=== PATIENT | female | born 1990 | race Caucasian/White ===

== ENCOUNTER 2024-12-10 19:56 | Observation (INO) | payer OTHER ==
[2024-12-10 20:02] VITALS: RESP 18; BMI 33.2
[2024-12-10 21:17] LABS: HEMATOCRIT 40.1 % (32.4-45.2); HEMOGLOBIN 13.5 GM/dL (10.7-15.3); MCH 29.3 pg (25.7-33.7); MCHC 33.6 g/dl (32.0-36.0); MEAN CELL VOLUME 87.3 fl (80-96); MEAN PLT VOLUME 7.7 fl (7.5-11.1); PLATELET COUNT 568 10^3/uL (134-434); RBC 4.59 M/mm3 (3.60-5.2); RDW 12.7 % (11.6-15.6)
[2024-12-10 21:45] LABS: CHLORIDE 103 mmol/L (98-107); POTASSIUM 3.4 mmol/L (3.5-5.1); SODIUM 136 mmol/L (136-145)
[2024-12-10 21:47] LABS: ALBUMIN 4.4 g/dl (3.4-5.0); AMYLASE 68 U/L (25-115); ANION GAP 14 mmol/L (4-13); BLOOD UREA NITROGEN 9.3 mg/dL (7-18); CO2 19 mmol/L (21-32); GLUCOSE,RANDOM 198 mg/dL (74-106); MAGNESIUM 1.5 mg/dL (1.8-2.4)
[2024-12-10 21:50] LABS: CREATININE 0.8 mg/dL (0.55-1.3); SGOT/AST 14 U/L (15-37); SGPT/ALT 16 U/L (13-61)
[2024-12-10 21:52] LABS: BILIRUBIN,TOTAL 0.6 mg/dL (0.2-1); TOT PROT 8.1 g/dl (6.4-8.2)
[2024-12-10 21:53] LABS: ALK PHOS 84 U/L (45-117)
[2024-12-10] MEDS ORDERED: TRIMETHOBENZAMIDE HCL 200MG/2ML INJ IM PRN (22:24)
[2024-12-10 22:25] LABS: PHOSPHOROUS 1.1 mg/dL (2.5-4.9)
[2024-12-10] MEDS ORDERED: MAGNESIUM 1GM/D5W - 2 GM/200 ML IVPB IVPB ONE (22:33)
[2024-12-10] MEDS: MAGNESIUM SULFATE IN WATER 2 GM/50 ML IVPB IVPB ONE (22:52)
[2024-12-10] MEDS: LACTATED RINGERS SOLUTION 1000 ML INFUS.BAG IV ONE (22:52)
[2024-12-10] MEDS: TRIMETHOBENZAMIDE HCL 200MG/2ML INJ IM ONE (23:10)
[2024-12-11 00:14] LABS: LACTIC ACID 2.9 mmol/L (0.4-2.0)
[2024-12-11] MEDS ORDERED: THIAMINE HCL 200 MG/2 ML VIAL ONE (00:25)
[2024-12-11] MEDS ORDERED: NAPH,MB-DB/K PH,MBDB POWDER PACKET ONE (00:26)
[2024-12-11] MEDS ORDERED: FAMOTIDINE 20 MG/50 ML IVPB 20 MG/50 ML MG IVPB ONE (00:26)
[2024-12-11] MEDS ORDERED: MAG HYDROX/AL HYDROX/SIMETH 30 ML UNIT-DOSE CUP ONE (00:26)
[2024-12-11] MEDS: LACTATED RINGERS SOLUTION 1000 ML INFUS.BAG IV ONE (00:38)
[2024-12-11] MEDS: THIAMINE HCL 200 MG/2 ML VIAL IVPB ONE (00:38)
[2024-12-11] MEDS: NAPH,MB-DB/K PH,MBDB POWDER PACKET PO ONE ×2 (00:38)
[2024-12-11] MEDS: MAG HYDROX/AL HYDROX/SIMETH 30 ML UNIT-DOSE CUP PO ONE (00:38)
[2024-12-11] MEDS: POTASSIUM CHLORIDE ORAL LIQUID 20 MEQ/15 ML PO ONE (00:38)
[2024-12-11] MEDS: FAMOTIDINE 20 MG/50 ML IVPB 20 MG/50 ML MG IVPB ONE (00:38)
[2024-12-11] MEDS: DEXTROSE 5%-NORMAL SALINE 1,000 ML IV SCH (01:52)
[2024-12-11] MEDS ORDERED: DOCUSATE SODIUM 100 MG CAPSULE (FP) PO PRN (01:58)
[2024-12-11 04:19] LABS: BASO % 0.2 % (0-2.0); HEMATOCRIT 37.9 % (32.4-45.2); HEMOGLOBIN 12.6 GM/dL (10.7-15.3); LYMPH % 4.1 % (8-40); MCH 29.2 pg (25.7-33.7); MCHC 33.2 g/dl (32.0-36.0); MEAN PLT VOLUME 7.5 fl (7.5-11.1); MONO % 0.8 % (3.8-10.2); NEUT % 94.9 % (42.8-82.8); PLATELET COUNT 357 10^3/uL (134-434); RBC 4.31 M/mm3 (3.60-5.2); RDW 12.4 % (11.6-15.6); WHITE BLOOD COUNT 14.9 K/mm3 (4.0-10.0)
[2024-12-11 04:23] LABS: VENOUS BASE EXCESS -2.5 mmol/L (-2-2); VENOUS PH 7.431 (7.310-7.410)
[2024-12-11 04:32] LABS: INR 1.25 (0.83-1.09); PROTHROMBIN TIME (PATIENT) 13.6 SEC (9.7-13.0)
[2024-12-11 04:35] LABS: ACTIVATED PTT 28.6 SECONDS (25.2-36.5)
[2024-12-11 04:59] LABS: CHLORIDE 102 mmol/L (98-107); POTASSIUM 3.8 mmol/L (3.5-5.1); SODIUM 136 mmol/L (136-145)
[2024-12-11 05:01] LABS: ANION GAP 12 mmol/L (4-13); BLOOD UREA NITROGEN 5.6 mg/dL (7-18); CALCIUM 8.9 mg/dL (8.5-10.1); CO2 21 mmol/L (21-32); GLUCOSE,RANDOM 109 mg/dL (74-106)
[2024-12-11] MEDS: ACETAMINOPHEN 325 MG TABLET (FP) PO PRN (05:03)
[2024-12-11 05:05] LABS: CREATININE 0.5 mg/dL (0.55-1.3); PHOSPHOROUS 3.6 mg/dL (2.5-4.9)
[2024-12-11] MEDS: TRIMETHOBENZAMIDE HCL 200MG/2ML INJ IM PRN (06:13)
[2024-12-11] MEDS: MULTIVITAMINS THER W-MINERALS COMBO TABLET (FP) PO SCH (09:02)
[2024-12-11] MEDS: PANTOPRAZOLE SODIUM 40 MG VIAL IVPUSH SCH (09:02)
[2024-12-11 09:22] LABS: ANISOCYTOSIS 0; MACROCYTOSIS 0
[2024-12-11 11:38] LABS: PH,URINE 6.5 (5.0-8.0); URINE APPEARANCE CLEAR; URINE BILIRUBIN NEGATIVE (NEGATIVE); URINE COLOR YELLOW; URINE GLUCOSE (UA) NEGATIVE (NEGATIVE); URINE KETONE 1+ (NEGATIVE); URINE LEUK ESTERASE NEGATIVE (NEGATIVE); URINE NITRITE NEGATIVE (NEGATIVE); URINE PROTEIN NEGATIVE (NEGATIVE); URINE UROBILINOGEN 0.2 mg/dL (0.2-1.0)
[2024-12-12 10:35] LABS: BASO % 0.3 % (0-2.0); EOS % 0.6 % (0-4.5); HEMATOCRIT 37.5 % (32.4-45.2); HEMOGLOBIN 12.6 GM/dL (10.7-15.3); LYMPH % 43.1 % (8-40); MCH 29.9 pg (25.7-33.7); MCHC 33.6 g/dl (32.0-36.0); MEAN PLT VOLUME 7.9 fl (7.5-11.1); PLATELET COUNT 369 10^3/uL (134-434); RBC 4.21 M/mm3 (3.60-5.2); RDW 12.9 % (11.6-15.6); WHITE BLOOD COUNT 9.9 K/mm3 (4.0-10.0)
[2024-12-12 11:07] LABS: CHLORIDE 107 mmol/L (98-107); POTASSIUM 3.5 mmol/L (3.5-5.1); SODIUM 143 mmol/L (136-145)
[2024-12-12 11:12] LABS: ALBUMIN 3.6 g/dl (3.4-5.0); ANION GAP 8 mmol/L (4-13); CALCIUM 8.9 mg/dL (8.5-10.1); CO2 28 mmol/L (21-32)
[2024-12-12 11:14] LABS: GLUCOSE,RANDOM 75 mg/dL (74-106)
[2024-12-12 11:17] LABS: BILIRUBIN,TOTAL 0.7 mg/dL (0.2-1); CREATININE 0.6 mg/dL (0.55-1.3); SGOT/AST 14 U/L (15-37); SGPT/ALT 16 U/L (13-61); TOT PROT 6.8 g/dl (6.4-8.2)
[2024-12-12 11:19] LABS: ALK PHOS 72 U/L (45-117)
[2024-12-12 11:24] LABS: BLOOD UREA NITROGEN 2.9 mg/dL (7-18)
[2024-12-12 14:46] VITALS: BP 130/81; PULSE 75; TEMP 98.3
[2024-12-12 23:09] LABS: CK-MM 100 % (97-100)
== END 2024-12-12 17:15 | disposition home or self-care (01) ==
LOC: JER 19:56 → JERBED 12-11 00:29 → J5S 12-11 04:46
PROVIDERS: ADMIT Internal Medicine; ATTEND Internal Medicine
PROC: 3E033GC Introduction of Other Therapeutic Substance into Peripheral Vein, Percutaneous Approach (ICD-10-PCS; principal; 2024-12-11)
PROC: 3E0337Z Introduction of Electrolytic and Water Balance Substance into Peripheral Vein, Percutaneous Approach (ICD-10-PCS; 2024-12-11)
DX: F43.10 Post-traumatic stress disorder, unspecified (principal); E66.9 Obesity, unspecified; R94.8 Abnormal results of function studies of other organs and systems; F41.8 Other specified anxiety disorders; R63.30 Feeding difficulties, unspecified; R06.4 Hyperventilation; F17.210 Nicotine dependence, cigarettes, uncomplicated
CPT/HCPCS: 36415; 71045-TC-FY; 76705-TC; 80048; 80053; 81003; 82010; 82150; 82550; 82552; 82553; 82803; 82962; 83036; 83605; 83690; 83735; 84100; 84484; 85025; 85027; 85610; 85730; 93005; 93010; 96361; 96365; 96367; 96375; 99285-25; G0378

== ENCOUNTER 2025-06-25 08:10 | Observation (INO) | payer OTHER ==
[2025-06-25] MEDS ORDERED: HALOPERIDOL LACTATE 5 MG/ML ONE (10:06)
[2025-06-25] MEDS: HALOPERIDOL LACTATE 5 MG/ML IM ONE (10:41)
[2025-06-25 10:48] LABS: ABSOLUTE IMMATURE GRANULOCYTES 0.03 x10^3/uL (0.0-0.031); BASOPHILS # 0.02 x10^3/uL (0.01-0.08); EOSINOPHIL % 0.1 % (0.7-5.8); EOSINOPHILS # 0.01 x10^3/uL (0.04-0.36); MCHC 32.2 g/dl (32.2-35.5); MEAN CELL VOLUME 88.4 fl (79.4-94.8); MEAN PLT VOLUME 9.1 fl (9.4-12.3); MONOCYTE # 0.41 x10^3/uL (0.24-0.86); MONOCYTE % 3.8 % (4.7-12.5); RDW 11.3 % (12.1-16.8)
[2025-06-25 11:35] LABS: GLUCOSE,RANDOM 108.0 mg/dL (74-106)
[2025-06-25 11:36] LABS: TOT PROT 7.9 g/dl (6.4-8.2)
[2025-06-25 11:37] LABS: CO2 20.0 mmol/L (21-32)
[2025-06-25 11:39] LABS: ALK PHOS 86.0 U/L (40-150)
[2025-06-25 11:41] LABS: SGOT/AST 20.0 U/L (5-34); SGPT/ALT 13.0 U/L (0-55)
[2025-06-25 11:42] LABS: CREATININE 0.6 mg/dL (0.55-1.3)
[2025-06-25 12:03] LABS: HCV DIAGNOSTIC IN-HOUSE W/RFLX NON-REACTIVE (NONREACTIVE); HIV INTERPRETATION NEGATIVE (NEGATIVE)
[2025-06-25 14:58] LABS: URINE APPEARANCE CLEAR; URINE BILIRUBIN NEGATIVE (NEGATIVE); URINE COLOR YELLOW; URINE GLUCOSE (UA) NEGATIVE (NEGATIVE); URINE KETONE NEGATIVE (NEGATIVE); URINE LEUK ESTERASE NEGATIVE (NEGATIVE); URINE NITRITE NEGATIVE (NEGATIVE); URINE PROTEIN NEGATIVE (NEGATIVE); URINE UROBILINOGEN 0.2 mg/dL (0.2-1.0)
[2025-06-25 15:05] LABS: COCAINE, UR NEGATIVE (NEGATIVE)
[2025-06-25 15:06] LABS: PHENCYCLIDINE,URINE NEGATIVE (NEGATIVE); URINE AMPHETAMINES NEGATIVE (NEGATIVE)
[2025-06-25 15:07] LABS: METHADONE, UR NEGATIVE (NEGATIVE); OPIATES, URI NEGATIVE (NEGATIVE); URINE BARBITURATES NEGATIVE (NEGATIVE); URINE BENZODIAZEPINES NEGATIVE (NEGATIVE)
[2025-06-26] MEDS ORDERED: VENLAFAXINE HCL 150 MG E.R. CAPSULE PO ONE (10:54)
[2025-06-26] MEDS ORDERED: VENLAFAXINE HCL 75 MG TABLET ONE (11:22)
[2025-06-26] MEDS: VENLAFAXINE HCL 75 MG E.R. CAPSULES PO ONE (11:29)
[2025-06-26] MEDS: NICOTINE 14 MG/24 HOURS TOPICAL PATCH TD SCH (16:00)
[2025-06-27] MEDS ORDERED: POLYETHYLENE GLYCOL (HEALTHYLAX) 3350 17 GM PACKET PO PRN (09:50)
[2025-06-27] MEDS ORDERED: VENLAFAXINE HCL 75 MG E.R. CAPSULES PO SCH (10:00)
[2025-06-27] MEDS ORDERED: VENLAFAXINE HCL 150 MG E.R. CAPSULE PO SCH (10:00)
[2025-06-27] MEDS: POLYETHYLENE GLYCOL (HEALTHYLAX) 3350 17 GM PACKET PO ONE (10:27)
[2025-06-27] MEDS: VENLAFAXINE HCL 75 MG E.R. CAPSULES PO SCH (10:27)
[2025-06-27 14:08] VITALS: BMI 34.8
[2025-06-27 17:26] VITALS: BP 133/84; PULSE 91; RESP 18; TEMP 98.4
== END 2025-06-27 19:49 | disposition home or self-care (01) ==
LOC: JER 08:10 → JERBED 06-26 08:23 → J7W 06-26 11:57
PROVIDERS: ADMIT Internal Medicine; ATTEND Internal Medicine
PROC: 3E023GC Introduction of Other Therapeutic Substance into Muscle, Percutaneous Approach (ICD-10-PCS; principal; 2025-06-26)
DX: R45.851 Suicidal ideations (principal); F23 Brief psychotic disorder; F31.9 Bipolar disorder, unspecified; F41.8 Other specified anxiety disorders; F17.210 Nicotine dependence, cigarettes, uncomplicated
CPT/HCPCS: 36415; 80053; 80307; 81003; 83735; 84703; 85025; 86803; 87086; 87389; 87637-QW; 93005; 93010; 99285-25; G0378